=== PATIENT | male | born 1955 | race Caucasian/White ===

== ENCOUNTER 2022-07-11 09:28 | Inpatient (IN) | payer OTHER ==
[~2022-07-11] VITALS: Ht 172.7 cm; Wt 75.7 kg
[2022-07-15] MEDS ORDERED: LIPITOR40 MG PO (09:22)
[2022-07-18] MEDS ORDERED: NORFLEX100MG PO (12:58)
[2022-07-18] MEDS ORDERED: XARELTO10 MG PO (12:59)
[2022-07-18] MEDS ORDERED: OXYC1TAB9 PO (12:59)
[2022-07-18] MEDS ORDERED: GABAPENTIN100 MG PO (12:59)
== END 2022-07-18 21:14 | DRG 470 ==
LOC: SURG 07-16 08:08 → O/R 07-16 08:08 → SURH 07-16 08:15 → SURG 07-16 15:01
PROVIDERS: ADMIT Orthopaedic Surgery; ATTEND Orthopaedic Surgery
PROC: 0SRD0J9 Replacement of Left Knee Joint with Synthetic Substitute, Cemented, Open Approach (ICD-10-PCS; principal; 2022-07-16 10:00)
DX: M17.12 Unilateral primary osteoarthritis, left knee (principal); D62 Acute posthemorrhagic anemia; M85.662 Other cyst of bone, left lower leg; Z96.652 Presence of left artificial knee joint